=== PATIENT | male | born 1955 | race Caucasian/White ===

== ENCOUNTER 2017-03-16 06:54 | Inpatient (IN) | payer MEDICAID, OTHER ==
[~2017-03-16] VITALS: Ht 170.2 cm; Wt 61.2 kg
[~2017-03-16 06:54] MED LIST: METHADONE
[2017-03-16] MEDS ORDERED: MORPHINE SULFATE 4 MG/ML CPJ (NOT FOR IM USE) IV STA (07:22)
[2017-03-16] MEDS ORDERED: SODIUM CHLORIDE 0.9% 1,000 ML IV ONE (07:22)
[2017-03-16] MEDS ORDERED: ONDANSETRON HCL 4MG/2ML VIAL IV STA (07:22)
[2017-03-16 07:57] LABS: BASOPHILS % 0.4 % (0.0-2.0); EOSINOPHILS % 0.3 % (0.0-5.0); HEMATOCRIT. 41.8 % (42.0-52.0); HEMOGLOBIN. 13.4 g/dL (14.0-18.0); LYMPHOCYTES % 15.8 % (20.0-50.0); MEAN CORPUSCULAR VOLUME 74.7 fL (80.0-94.0); MEAN PLATELET VOLUME 7.2 fl (7.4-10.4); MONOCYTES % 2.8 % (2.0-8.0); NEUTROPHILS % 80.7 % (40.0-76.0); PLATELET 250 x1000/uL (130-400); RED BLOOD CELL COUNT 5.59 mill/uL (4.7-6.1); RED CELL DISTRIBUTION WIDTH 19.1 % (11.6-14.6)
[2017-03-16 08:07] LABS: PARTIAL THROMBOPLASTIN TIME 26.1 sec (23.4-31.0); PROTHROMBIN TIME 10.7 sec (9.4-11.6)
[2017-03-16] MEDS ORDERED: MORPHINE SULFATE 4 MG/ML CPJ (NOT FOR IM USE) IV ONE (08:15)
[2017-03-16 08:19] LABS: CARBON DIOXIDE 28 mEq/L (21-32); CHLORIDE 102 mEq/L (98-107); TROPONIN I < 0.02 ng/mL (0.00-0.04)
[2017-03-16] MEDS ORDERED: FENTANYL CITRATE/PF 50MCG/ML 2ML VIAL IV ONE ×2 (08:45→09:30)
[2017-03-16 09:23] LABS: CLARITY URINE TURBID (CLEAR); COLOR URINE YELLOW (YELLOW); GLUCOSE URINE NEGATIVE (NEGATIVE); KETONES URINE TRACE (NEGATIVE); LEUKOCYTE ESTERASE URINE NEGATIVE (NEGATIVE); NITRITE URINE NEGATIVE (NEGATIVE); OCCULT BLOOD URINE NEGATIVE (NEGATIVE); PROTEIN URINE NEGATIVE (NEGATIVE); SPECIFIC GRAVITY URINE 1.018 (1.005-1.030); UROBILINOGEN URINE 0.2 E.U./dL (0.2-1.0)
[2017-03-16] MEDS ORDERED: CEFTRIAXONE 1 G PREMIX 50 ML IV ONE (10:30)
[2017-03-16] MEDS: AZITHROMYCIN 500 MG in DEXT 5% WATER 250 ML IV SCH ×2 (10:30→13:23)
[2017-03-16] MEDS ORDERED: KETAMINE HCL 50 MG/ML 10ML IM ONE (10:30)
[2017-03-16] MEDS ORDERED: IOHEXOL-300 100 ML BOTTLE ONE (14:45)
[2017-03-16] MEDS ORDERED: SODIUM CHLORIDE 0.9% 10ML VIAL ONE ×2 (14:45→14:50)
[2017-03-16] MEDS ORDERED: IOHEXOL-350 100 ML BOTTLE ONE (14:50)
[2017-03-16 17:24] VITALS: BP 151/86
[2017-03-16 17:27] VITALS: BP 151/86
[2017-03-16] MEDS: MORPHINE SULFATE 4 MG/ML CPJ (NOT FOR IM USE) IV PRN (18:47)
[2017-03-16] MEDS ORDERED: HYDRALAZINE 20MG/ML VIAL IV PRN (19:00)
[2017-03-16] MEDS: ONDANSETRON HCL 4MG/2ML VIAL IV PRN (19:31)
[2017-03-16 20:00] VITALS: BP 163/92
[2017-03-16] MEDS ORDERED: DEXT 5%/0.45% NACL KCL 20MEQ/L 1,000 ML IV SCH (20:00)
[2017-03-16] MEDS: LORAZEPAM 2MG/ML CPJ IV PRN (20:00)
[2017-03-16] MEDS: DEXT 5%/0.45% NACL KCL 20MEQ/L 1,000 ML IV SCH (20:01)
[2017-03-16 21:00] VITALS: BP 148/82
[2017-03-17] VITALS: BP 140/76
[2017-03-17] MEDS: DEXT 5%/0.45% NACL KCL 20MEQ/L 1,000 ML IV SCH ×2 (03:02→13:00)
[2017-03-17] MEDS: LORAZEPAM 2MG/ML CPJ IV PRN ×2 (03:02→08:32)
[2017-03-17 03:43] VITALS: BP 138/79
[2017-03-17 04:32] LABS: *AMPHETAMINES SCREEN URINE NEGATIVE (NEGATIVE); *BARBITURATES SCREEN URINE NEGATIVE (NEGATIVE); *BENZODIAZEPINES SCREEN URINE NEGATIVE (NEGATIVE); *COCAINE SCREEN URINE NEGATIVE (NEGATIVE); CANNABINOID URINE SCREEN PRESUMTIVE POSITIVE (NEGATIVE); METHADONE URINE SCREEN PRESUMTIVE POSITIVE (NEGATIVE); OPIATES URINE SCREEN PRESUMTIVE POSITIVE (NEGATIVE); PHENCYCLIDINE URINE SCREEN NEGATIVE (NEGATIVE)
[2017-03-17] MEDS: ONDANSETRON HCL 4MG/2ML VIAL IV PRN ×2 (05:30→15:08)
[2017-03-17] MEDS: MORPHINE SULFATE 4 MG/ML CPJ (NOT FOR IM USE) IV PRN ×3 (06:55→13:49)
[2017-03-17 07:47] LABS: BASOPHILS % 0.1 % (0.0-2.0); EOSINOPHILS % 0.1 % (0.0-5.0); HEMATOCRIT. 38.4 % (42.0-52.0); HEMOGLOBIN. 12.4 g/dL (14.0-18.0); LYMPHOCYTES % 19.3 % (20.0-50.0); MEAN CORPUSCULAR HEMOGLOBIN 23.9 pg (28.0-32.0); MEAN PLATELET VOLUME 7.2 fl (7.4-10.4); MONOCYTES % 6.3 % (2.0-8.0); NEUTROPHILS % 74.2 % (40.0-76.0); PLATELET 245 x1000/uL (130-400); RED BLOOD CELL COUNT 5.19 mill/uL (4.7-6.1); RED CELL DISTRIBUTION WIDTH 19.2 % (11.6-14.6)
[2017-03-17 08:00] VITALS: BP 132/80
[2017-03-17 08:08] LABS: CARBON DIOXIDE 26 mEq/L (21-32); CHLORIDE 104 mEq/L (98-107); HDL CHOLESTEROL 63 mg/dL (40-59); LDL CHOLESTEROL 108 mg/dL (5-100)
[2017-03-17] MEDS ORDERED: PANTOPRAZOLE SODIUM 40 MG/VIAL IV SCH (10:15)
[2017-03-17 12:00] VITALS: BP 111/80
[2017-03-17 14:59] VITALS: BP 111/80
[2017-03-17 16:00] VITALS: BP 133/76
== END 2017-03-17 16:00 | disposition home or self-care (01) | DRG 139 ==
LOC: ER 06:54 → 7WST 10:38 → ENRESERV 16:00
PROVIDERS: ADMIT Internal Medicine; ATTEND Internal Medicine
DX: J18.9 Pneumonia, unspecified organism (principal); F11.20 Opioid dependence, uncomplicated; R10.9 Unspecified abdominal pain; F41.9 Anxiety disorder, unspecified; F43.10 Post-traumatic stress disorder, unspecified; F17.210 Nicotine dependence, cigarettes, uncomplicated; K52.9 Noninfective gastroenteritis and colitis, unspecified; Z79.899 Other long term (current) drug therapy
CPT/HCPCS: 36415; 71010; 71275; 74174; 74177; 80053; 80061; 80305; 81001; 83605; 83690; 84484; 85025; 85610; 85730; 87040; 93005; 96361; 96365; 96375; 96376; 99285; A4216; C9113; J0456; J0696; J2060; J2270; J2405; J3010; J3490; J7030; J7060; Q9967

== ENCOUNTER 2018-05-02 11:01 | Emergency (ER) | payer MEDICAID ==
[~2018-05-02] VITALS: Ht 172.7 cm; Wt 61.0 kg
[2018-05-02 18:48] LABS: BASOPHILS % 0.3 % (0.0-2.0); EOSINOPHILS % 0.5 % (0.0-5.0); HEMATOCRIT. 40.7 % (42.0-52.0); HEMOGLOBIN. 12.8 g/dL (14.0-18.0); LYMPHOCYTES % 29.3 % (20.0-50.0); MEAN CORPUSCULAR HEMOGLOBIN 24.2 pg (28.0-32.0); MEAN CORPUSCULAR VOLUME 76.9 fL (80.0-94.0); MEAN PLATELET VOLUME 7.4 fl (7.4-10.4); MONOCYTES % 5.9 % (2.0-8.0); PLATELET 210 x1000/uL (130-400)
[2018-05-02 18:53] LABS: CHLORIDE 100 mEq/L (98-107)
[2018-05-02 18:57] LABS: ETHANOL BLOOD < 10 mg/dL
[2018-05-02] MEDS ORDERED: IBUPROFEN 600MG TABLET PO ONE (21:00)
[2018-05-02 21:09] VITALS: BP 136/72
== END 2018-05-02 21:12 | disposition home or self-care (01) ==
LOC: ER 11:01
DX: R51 Headache (principal); R55 Syncope and collapse; F11.10 Opioid abuse, uncomplicated; F17.200 Nicotine dependence, unspecified, uncomplicated
CPT/HCPCS: 36415; 70450; 71045; 80053; 84484; 85025; 93005; 99285; G0482

== ENCOUNTER 2019-01-18 16:03 | Emergency (ER) | payer MEDICARE, MEDICAID ==
[~2019-01-18] VITALS: Ht 175.3 cm; Wt 80.0 kg
[2019-01-18 16:12] VITALS: BP 117/63
[2019-01-18] MEDS ORDERED: NALOXONE HCL 1 MG/ML 2ML VIAL ONE (16:19)
== END 2019-01-18 16:45 | disposition left against medical advice (07) ==
LOC: ER 16:03
DX: T40.2X1A Poisoning by other opioids, accidental (unintentional), initial encounter (principal); G92 Toxic encephalopathy; Y92.488 Other paved roadways as the place of occurrence of the external cause
CPT/HCPCS: 93005; 99283; J2310

== ENCOUNTER 2019-06-09 10:53 | Inpatient (IN) | payer MEDICARE, MEDICAID ==
[2019-06-09] VITALS (27 sets, daily range): BP systolic 84–105; BP diastolic 31–81
[~2019-06-09] VITALS: Ht 177.8 cm; Wt 64.0 kg
[2019-06-09] MEDS ORDERED: SODIUM CHLORIDE 0.9% 1,000 ML IV ONE (11:23)
[2019-06-09 12:28] LABS: BASOPHILS % 0.3 % (0.0-2.0); EOSINOPHILS % 0.6 % (0.0-5.0); HEMATOCRIT. 40.9 % (42.0-52.0); HEMOGLOBIN. 13.3 g/dL (14.0-18.0); LYMPHOCYTES % 14.3 % (20.0-50.0); MEAN CORPUSCULAR HEMOGLOBIN 27.3 pg (28.0-32.0); MEAN CORPUSCULAR VOLUME 84.1 fL (80.0-94.0); MEAN PLATELET VOLUME 7.2 fl (7.4-10.4); NEUTROPHILS % 78.8 % (40.0-76.0); PLATELET 244 x1000/uL (130-400); RED BLOOD CELL COUNT 4.86 mill/uL (4.7-6.1); RED CELL DISTRIBUTION WIDTH 15.3 % (11.6-14.6)
[2019-06-09 12:36] LABS: CHLORIDE 104 mEq/L (98-107)
[2019-06-09 12:43] LABS: ETHANOL BLOOD < 10 mg/dL
[2019-06-09] MEDS ORDERED: LEVOFLOXACIN 500MG PREMIX 100 ML IV ONE (13:15)
[2019-06-09] MEDS ORDERED: SODIUM CHLORIDE 0.9% 1000ML BAG (SEPSIS BOLUS) IV ONE (13:15)
[2019-06-09] MEDS ORDERED: NOREPINEPHRINE 16 MG in DEXT 5% WATER 234 ML IV PRN (18:00)
[2019-06-09] MEDS: DEXT 5% WATER + KCL 20MEQ/L 1,000 ML IV SCH (20:48)
[2019-06-09] MEDS: MORPHINE SULFATE 2 MG/ML CPJ (NOT FOR IM USE) IV PRN (20:48)
[2019-06-10] VITALS (48 sets, daily range): BP systolic 88–141; BP diastolic 28–76
[2019-06-10] MEDS: MORPHINE SULFATE 2 MG/ML CPJ (NOT FOR IM USE) IV PRN ×2 (02:09→05:32)
[2019-06-10 05:22] LABS: BASOPHILS % 0.3 % (0.0-2.0); EOSINOPHILS % 0.8 % (0.0-5.0); HEMATOCRIT. 32.6 % (42.0-52.0); HEMOGLOBIN. 10.6 g/dL (14.0-18.0); LYMPHOCYTES % 20.7 % (20.0-50.0); MEAN CORPUSCULAR HEMOGLOBIN 27.1 pg (28.0-32.0); MEAN CORPUSCULAR VOLUME 83.2 fL (80.0-94.0); MEAN PLATELET VOLUME 6.9 fl (7.4-10.4); NEUTROPHILS % 67.2 % (40.0-76.0); PLATELET 213 x1000/uL (130-400); RED BLOOD CELL COUNT 3.92 mill/uL (4.7-6.1); RED CELL DISTRIBUTION WIDTH 15.2 % (11.6-14.6)
[2019-06-10 05:27] LABS: CHLORIDE 104 mEq/L (98-107)
[2019-06-10] MEDS: DEXT 5% WATER + KCL 20MEQ/L 1,000 ML IV SCH ×3 (05:32→20:25)
[2019-06-10 08:30] LABS: BG BASE EXCESS 3.1 mmol/L (-2.0-2.0); BG CARBOXYHEMOGLOBIN 0.4 % (0.5-1.5); BG DEOXYHEMOGLOBIN 3.4 % (0.0-5.0); BG FRACTION INSPIRED OXYGEN 32; BG HCO3 ACT 28.1 mmol/L (22.0-26.0); BG METHEMOGLOBIN 0.1 % (0.0-1.5); BG OXYGEN SATURATION 96.6 % (92.0-98.5); BG OXYHEMOGLOBIN 96.1 % (94.0-97.0); BG PH 7.414 (7.350-7.450); BG PO2 88.2 mmHg (75.0-100.0); BG SAMPLE SITE RIGHT BRACHIAL; BG TOTAL HEMOGLOBIN 11.5 g/dL (12.0-18.0); BG VENT MODE NASAL CANNULA
[2019-06-10] MEDS: PANTOPRAZOLE SODIUM 40 MG/VIAL IV SCH (08:30)
[2019-06-10] MEDS ORDERED: LORAZEPAM 2MG/ML CPJ IV PRN (09:00)
[2019-06-10] MEDS ORDERED: IPRATROPIUM/ALBUTEROL 0.5-3(2.5)MG/3ML NEB HHN PRN (10:15)
[2019-06-10] MEDS ORDERED: ALPRAZOLAM 0.25 MG TABLET PO PRN (10:15)
[2019-06-10] MEDS: GUAIFENESIN 600MG ER TABLET PO SCH ×2 (10:58→20:24)
[2019-06-10 12:28] LABS: CLARITY URINE CLEAR (CLEAR); COLOR URINE YELLOW (YELLOW); KETONES URINE NEGATIVE (NEGATIVE); LEUKOCYTE ESTERASE URINE NEGATIVE (NEGATIVE); NITRITE URINE NEGATIVE (NEGATIVE); OCCULT BLOOD URINE NEGATIVE (NEGATIVE); PROTEIN URINE NEGATIVE (NEGATIVE); SPECIFIC GRAVITY URINE 1.008 (1.005-1.030); UROBILINOGEN URINE 0.2 E.U./dL (0.2-1.0)
[2019-06-10 12:48] LABS: *AMPHETAMINES SCREEN URINE NEGATIVE (NEGATIVE); *BARBITURATES SCREEN URINE NEGATIVE (NEGATIVE); *BENZODIAZEPINES SCREEN URINE PRESUMTIVE POSITIVE (NEGATIVE); *COCAINE SCREEN URINE NEGATIVE (NEGATIVE)
[2019-06-10 12:49] LABS: CANNABINOID URINE SCREEN PRESUMTIVE POSITIVE (NEGATIVE); METHADONE URINE SCREEN PRESUMTIVE POSITIVE (NEGATIVE); OPIATES URINE SCREEN PRESUMTIVE POSITIVE (NEGATIVE); PHENCYCLIDINE URINE SCREEN NEGATIVE (NEGATIVE)
[2019-06-10] MEDS: ALPRAZOLAM 0.5 MG TABLET PO PRN ×2 (14:48→21:38)
[2019-06-10] MEDS ORDERED: LEVOFLOXACIN 750MG PREMIX 150 ML IV SCH (15:00)
[2019-06-10] MEDS ORDERED: PNEUMOCOCCAL 23-VAL P-SAC VAC 0.5 ML IM ONE (16:15)
[2019-06-11] MEDS: DEXT 5% WATER + KCL 20MEQ/L 1,000 ML IV SCH (04:03)
[2019-06-11] MEDS: ONDANSETRON HCL 4MG/2ML INJ IV PRN ×2 (04:31→08:49)
[2019-06-11 05:44] LABS: BASOPHILS % 0.2 % (0.0-2.0); EOSINOPHILS % 1.2 % (0.0-5.0); HEMATOCRIT. 35.5 % (42.0-52.0); HEMOGLOBIN. 11.8 g/dL (14.0-18.0); LYMPHOCYTES % 24.1 % (20.0-50.0); MEAN CORPUSCULAR HEMOGLOBIN 27.2 pg (28.0-32.0); MEAN CORPUSCULAR VOLUME 82.4 fL (80.0-94.0); MONOCYTES % 8.8 % (2.0-8.0); NEUTROPHILS % 65.7 % (40.0-76.0); PLATELET 231 x1000/uL (130-400); RED BLOOD CELL COUNT 4.31 mill/uL (4.7-6.1)
[2019-06-11 05:51] LABS: CHLORIDE 104 mEq/L (98-107)
[2019-06-11] MEDS: ALPRAZOLAM 0.5 MG TABLET PO PRN (07:02)
[2019-06-11] MEDS: GUAIFENESIN 600MG ER TABLET PO SCH (09:00)
[2019-06-11] MEDS ORDERED: KETOROLAC 30MG/ML VIAL IV PRN (10:45)
[2019-06-11] MEDS: PANTOPRAZOLE SODIUM 40 MG/VIAL IV SCH (11:04)
[2019-06-11] MEDS ORDERED: FLUT1DIS3 INH (12:34)
[2019-06-11] MEDS ORDERED: ALBU18HF2 IH (12:34)
[2019-06-11] MEDS ORDERED: LEVO750T21 MT (12:34)
[2019-06-11 13:17] VITALS: BP 142/87
[2019-06-11] MEDS ORDERED: ONDANSETRON 4MG ODT PO NR (14:00)
== END 2019-06-11 16:05 | disposition home or self-care (01) | DRG 816 ==
LOC: ER 10:53 → EDBEDREQ 15:01 → EDBEDREQTM 15:01 → ENRESERV 15:34 → 5WST 16:37 → MICUSO 17:21 → 6EST 06-11 09:15
PROVIDERS: ADMIT Internal Medicine; ATTEND Internal Medicine
DX: T40.1X1A Poisoning by heroin, accidental (unintentional), initial encounter (principal); J96.01 Acute respiratory failure with hypoxia; J69.0 Pneumonitis due to inhalation of food and vomit; G92 Toxic encephalopathy; E87.2 Acidosis; I95.9 Hypotension, unspecified; E44.1 Mild protein-calorie malnutrition; F12.90 Cannabis use, unspecified, uncomplicated; D64.9 Anemia, unspecified; F29 Unspecified psychosis not due to a substance or known physiological condition; H91.8X3 Other specified hearing loss, bilateral; Z59.0 Homelessness; Z71.51 Drug abuse counseling and surveillance of drug abuser; Z68.20 Body mass index [BMI] 20.0-20.9, adult
CPT/HCPCS: 36415; 36600; 71045; 80048; 80053; 80305; 80307; 80320; 80329; 81003; 82375; 82805; 83605; 83880; 84145; 84484; 85025; 93005; 93970; 99291; C9113; J1885; J1956; J2270; J2405; J7030; J7060; J7620; Q0162; A4315; G0480

== ENCOUNTER 2020-06-29 16:00 | Emergency (ER) | payer MEDICARE, MEDICAID ==
[~2020-06-29] VITALS: Ht 170.2 cm; Wt 72.0 kg
[~2020-06-29 16:00] MED LIST changes: +ALBU18HF2 IH; +FLUT1DIS3 INH; +LEVO750T21 MT
[2020-06-29 16:01] VITALS: BP 174/82
[2020-06-29] MEDS ORDERED: SODIUM CHLORIDE 0.9% 1,000 ML IV ONE (16:45)
== END 2020-06-29 20:28 | disposition home or self-care (01) ==
LOC: ER 16:00
DX: T40.3X1A Poisoning by methadone, accidental (unintentional), initial encounter (principal); F11.10 Opioid abuse, uncomplicated; Z98.890 Other specified postprocedural states; Z79.899 Other long term (current) drug therapy; Y92.89 Other specified places as the place of occurrence of the external cause
CPT/HCPCS: 71045; 93005; 99283; J7030